=== PATIENT | female | born 1985 | race African-American/Black ===

== ENCOUNTER 2020-04-17 07:06 | Inpatient (IN) | payer BC ==
[~2020-04-17] VITALS: Ht 157.5 cm; Wt 83.6 kg
[2020-04-17] VITALS (18 sets, daily range): BP systolic 101–133; BP diastolic 59–87; PULSE 68–85; TEMP 98.1–98.7
[~2020-04-17 07:06] MED LIST: IRON325 M2 PO; LOTRIMIN15 GM TOP; PRENATAL1 TA7 PO
[2020-04-17 07:57] LABS: BASO % 0.2 % (0.0-2.0); EOS % 0.4 % (0-4.0); GRAN # 5.4 (1.4-6.5); GRAN % 64.2 % (42.2-75.2); HEMATOCRIT 35.5 % (37.0-47.0); HEMOGLOBIN 12.5 g/dl (12.5-16.0); LYMPH # 2.2 (1.2-3.4); LYMPH % 26.6 % (20.0-51.0); MEAN CELL VOLUME 87 fl (80.0-100.0); MEAN CORPUSCULAR HEMOGLOBIN 31 pg (27.0-31.0); MEAN CORPUSCULAR HGB CONC 35 g/dl (33.0-37.0); MONO # 0.7 (0.1-0.6); MONO % 8.2 % (1.7-9.3); PLATELET COUNT 238 K/mm3 (130-400); RED BLOOD COUNT 4.07 M/mm3 (4.10-5.30); REDCELL DISTRIBUTION WIDTH-CV 13.4 % (11.5-14.5)
--- NOTE | 2020-04-17 08:17 | NUR ---
0720 PATIENT HERE FOR COMPAINTS OF CONTRACTIONS THAT ARE GETTING MORE INTENSE. EFM ON FHT 118 BABY VERY ACTIVE. CONTRACTIONS 2-3 APART. PATIENT HAS TO BREATH THROUGH EACH CONTRACIONS. SVE /-1. DR ECHOLS CALLED AND UPDATED AT THIS TIME. ORDERS TO ADMIT. ASSESSMENT COMPLETED. IV STARTED IN LEFT HAND AND LR HUNG. Maye [facility] CALLED TO GIVE EPIDURAL.
--- NOTE | 2020-04-17 08:24 | NUR ---
4428 Maye [facility] DRAWING IN HAND AT BEDSIDE. PATIENT SITS UP FOR EPIDURAL PLACEMENT. TOLERATE WELL. SEE [facility]e [facility] NOTES FOR QUESTIONS.
--- NOTE | 2020-04-17 09:58 | NUR ---
0900 DR ECHOLS AT BEDSIDE. SVE 10/+1 AROM WITH AMNIOHOOK FOR THICK MECONIUM FLUID. 09 PATIENT PUSHES WITH CONTRACTIONS. [address] ECHOLS. CORD CLAMPED AND CUT BY DR ECHOLS. BABY TO MOMS CHEST. STRONG CRY NOTED. CORD GASES OBTAINED AND SENT TO LAB. 09 PLACENTA DELIVERED. AND PITOCIN STATED AT 333 PER PROTOCOL. FUNDUS FIRM AND BLEEDING WNL.
[2020-04-18] VITALS: BP 106/69; PULSE 79; TEMP 98.4
[2020-04-18 04:11] VITALS: BP 106/66; PULSE 76; TEMP 98
[2020-04-18 08:42] VITALS: BP 108/76; PULSE 80; TEMP 97.9
[2020-04-18] MEDS ORDERED: IBU600 MG PO (09:42)
--- NOTE | 2020-04-18 12:30 | NUR ---
Patient given discharge instructions, denies questions.Escorted off unit by quality control engineer.
== END 2020-04-18 12:30 | disposition home or self-care (01) | DRG 807 ==
LOC: LDRO 07:06 → LDR 07:35 → OB 14:14
PROVIDERS: ADMIT Obstetrics & Gynecology
PROC: 10907ZC Drainage of Amniotic Fluid, Therapeutic from Products of Conception, Via Natural or Artificial Opening (ICD-10-PCS; principal; 2020-04-17)
PROC: 10E0XZZ Delivery of Products of Conception, External Approach (ICD-10-PCS; 2020-04-17)
PROC: 0HQ9XZZ Repair Perineum Skin, External Approach (ICD-10-PCS; 2020-04-17)
DX: O77.0 Labor and delivery complicated by meconium in amniotic fluid (principal); Z37.0 Single live birth; O99.02 Anemia complicating childbirth; D64.9 Anemia, unspecified; D25.9 Leiomyoma of uterus, unspecified; O70.0 First degree perineal laceration during delivery; O34.13 Maternal care for benign tumor of corpus uteri, third trimester; Z3A.39 39 weeks gestation of pregnancy
CPT/HCPCS: J2590; J2795; J7120